=== PATIENT | male | born 1940 | race Caucasian/White ===

== ENCOUNTER 2017-01-08 12:54 | Emergency (ER) | payer OTHER ==
[~2017-01-08] VITALS: Ht 172.7 cm; Wt 90.0 kg
[2017-01-08 12:56] VITALS: BP 184/74; PULSE 101; RESP 20; TEMP 99.2; O2SAT 96
--- NOTE | 2017-01-08 13:10 | PD ---
Physical Exam Time Seen by Provider: 13:05 Narrative 76[facility] to left lower back x 2days despite antibiotics, I&D, and has Low grade fever. Patient also has confusion and the [facility] nurse was unable to verify if this was normal. Patient denies dementia. Patient denies vomiting. Patient seen in triage. VS reviewed. Awaiting bed placement. Data Data Last Documented VS Vital Signs Date Time Temp Pulse Resp B/P Pulse Ox O2 Delivery O2 Flow Rate FiO2 01/08/17 12:56 99.2 101 20 184/74 96 Room Air MDM Supervised Visit with ARMEN: Eula Richter Jan 08, 2017 13:10
--- NOTE | 2017-01-08 15:15 | PD ---
HPI Chief Complaint: Altered Mental Status Time Seen by Provider: 15:14 Travel History International Travel<30 days: No Contact w/Intl Traveler<30days: No Traveled to known affect area: No Allergies-Medications (Allergen,Severity, Reaction): Coded Allergies: No Known Allergies (Unverified , 01/08/17) Data Data Last Documented VS Vital Signs Date Time Temp Pulse Resp B/P Pulse Ox O2 Delivery O2 Flow Rate FiO2 01/08/17 15:24 84 14 92 Room Air 01/08/17 12:56 99.2 184/74 Orders Blood Glucose (01/08/17 14:46) Oximetry (01/08/17 14:46) Iv Access Insert/Monitor (01/08/17 14:46) Ecg Monitoring (01/08/17 14:46) Basic Metabolic Panel (Bmp) (01/08/17 15:25) Complete Blood Count With Diff (01/08/17 15:25) Blood Culture (01/08/17 15:25) Clindamycin Inj (Cleocin Inj) (01/08/17 15:30) Urinalysis - C+S If Indicated (01/08/17 15:25) Alcohol (Ethanol) (01/08/17 15:25) Acetaminophen (Tylenol) (01/08/17 15:30) Shireen Car Jan 08, 2017 15:15
[2017-01-08 15:24] VITALS: BP 131/89; PULSE 82; RESP 15; O2SAT 93
--- NOTE | 2017-01-08 15:27 | PD ---
HPI Chief Complaint: Altered Mental Status Time Seen by Provider: 15:27 Travel History International Travel<30 days: No Contact w/Intl Traveler<30days: No Traveled to known affect area: No History of Present Illness HPI 76 YO male presents to the ED by private car after being sent by the [place] for evaluation of possible altered mental status. On presentation the patient complains abscess on his back, present "for about a week." He denies fevers, chills, chest pain, palpitations, shortness of breath, abdominal pain, changes in bowel habits, nausea, vomiting, dysuria, weakness of the extremities. He states that he had the area treated last week but is unsure if it was at the [place] or [facility]. Patient endorses chronic ETOH, denies drinking today. He has not been taking antibiotics at home. [facility] Past Medical History Medical History: Denies Significant Hx Social History Alcohol Use: Yes ("not every day") Tobacco Use: No Substance Use: No Allergies-Medications (Allergen,Severity, Reaction): Coded Allergies: No Known Allergies (Unverified , 01/08/17) Reported Meds & Prescriptions Reported Meds & Active Scripts Active Clindamycin (Clindamycin HCl) 300 Mg Cap 300 Mg PO TID Review of Systems Except as stated in HPI: all other systems reviewed are Neg Physical Exam Narrative GENERAL: Well-nourished, well-developed pleasantly eccentric white male in no acute distress. Smells of alcohol. SKIN: Focused skin assessment warm/dry.SKIN: There is an indurated area in the mid back which measures about 3 cm in diameter. It is fluctuant, actively draining. There is a zone of inflammation around it but no lymphangitis. HEAD: Normocephalic. EYES: No scleral icterus. No injection or drainage. PERRLA. EOMI. NECK: Supple, trachea midline. No JVD or lymphadenopathy. CARDIOVASCULAR: Regular rate and rhythm without murmurs, gallops, or rubs. Equal pulses in the bilateral extremities. RESPIRATORY: Breath sounds clear and equal bilaterally. No accessory muscle use. GASTROINTESTINAL: Abdomen soft, non-tender, nondistended. Active bowel sounds. MUSCULOSKELETAL: No cyanosis, or edema. Ambulatory, walks with a steady gait. NEUROLOGICAL: Awake and alert. Cranial nerves II through XII intact. Motor and sensory grossly within normal limits. 5/5 muscle strength in all muscle groups. Normal speech. No pronator drift. BACK: Nontender without obvious deformity. No CVA tenderness. Data Data Last Documented VS Vital Signs Date Time Temp Pulse Resp B/P Pulse Ox O2 Delivery O2 Flow Rate FiO2 01/08/17 16:49 77 16 131/89 97 Room Air 01/08/17 12:56 99.2 Orders Blood Glucose (01/08/17 14:46) Oximetry (01/08/17 14:46) Iv Access Insert/Monitor (01/08/17 14:46) Ecg Monitoring (01/08/17 14:46) Basic Metabolic Panel (Bmp) (01/08/17 15:25) Complete Blood Count With Diff (01/08/17:) Blood Culture (01/08/17:) Clindamycin Inj (Cleocin Inj) (01/08/17 15:30) Urinalysis - C+S If Indicated (01/08/17 15:) Alcohol (Ethanol) (01/08/17 15:25) Acetaminophen (Tylenol) (01/08/17 15:30) Labs Laboratory Tests Test 01/08/17 01/08/17 15:30 16:00 White Blood Count 9.2 TH/MM3 Red Blood Count 4.75 MIL/MM3 Hemoglobin 14.6 GM/DL Hematocrit 43.8 % Mean Corpuscular Volume 92.1 FL Mean Corpuscular Hemoglobin 30.6 PG Mean Corpuscular Hemoglobin 33.3 % Concent Red Cell Distribution Width 14.6 % Platelet Count 184 TH/MM3 Mean Platelet Volume 7.8 FL Neutrophils (%) (Auto) 76.2 % Lymphocytes (%) (Auto) 9.8 % Monocytes (%) (Auto) 12.6 % Eosinophils (%) (Auto) 1.0 % Basophils (%) (Auto) 0.4 % Neutrophils # (Auto) 7.0 TH/MM3 Lymphocytes # (Auto) 0.9 TH/MM3 Monocytes # (Auto) 1.2 TH/MM3 Eosinophils # (Auto) 0.1 TH/MM3 Basophils # (Auto) 0.0 TH/MM3 CBC Comment DIFF FINAL Differential Comment Sodium Level 140 MEQ/L Potassium Level 3.9 MEQ/L Chloride Level 106 MEQ/L Carbon Dioxide Level 27.7 MEQ/L Anion Gap 6 MEQ/L Blood Urea Nitrogen 17 MG/DL Creatinine 0.91 MG/DL Estimat Glomerular Filtration 81 ML/MIN Rate Random Glucose 108 MG/DL Calcium Level 9.0 MG/DL Ethyl Alcohol Level LESS THAN 3 MG/DL Urine Color YELLOW Urine Turbidity CLEAR Urine pH 5.5 Urine Specific Max 1.026 Urine Protein 30 mg/dL Urine Glucose (UA) NEG mg/dL Urine Ketones NEG mg/dL Urine Occult Blood NEG Urine Nitrite NEG Urine Bilirubin NEG Urine Urobilinogen LESS THAN 2.0 MG/DL Urine Leukocyte Esterase TRACE Urine RBC 1 /hpf Urine WBC 3 /hpf Urine Squamous Epithelial <1 /hpf Cells Urine Hyaline Casts 1 /lpf Urine Mucus FEW /lpf Microscopic Urinalysis Comment CULT NOT INDICATED MDM Medical Decision Making Medical Screen Exam Complete: Yes Emergency Medical Condition: Yes Differential Diagnosis abscess versus cellulitis versus sepsis versus chronic alcoholism versus alcohol intoxication versus other Narrative Course 76 YO male presents to the ED by private car after being sent by the [place] for evaluation of possible altered mental status. On presentation the patient complains abscess on his back, present "for about a week." He denies fevers, chills, chest pain, palpitations, shortness of breath, abdominal pain, changes in bowel habits, nausea, vomiting, dysuria, weakness of the extremities. He states that he had the area treated last week but is unsure if it was at the [place] or [facility]. Patient endorses chronic ETOH, denies drinking today. Temp 99.2, pulse 101 in triage. Tachycardia resolved in the exam room. Physical exam reveals a pleasant, eccentric white male in no acute distress. He is alert and oriented 4. No focal neural deficits. There is an abscess in the mid back but it is open and draining well. Patient was administered 650 mg Tylenol by mouth, 900 mg clindamycin IV. No concerning abnormalities of the CBC, CMP or UA. He smells of ETOH, but blood alcohol less than 3. Discussed the results of the workup with the patient. I believe he is reliable to take antibiotics at home and [facility]. Patient's instructed to take all medication as prescribed, [facility]. He indicated understanding of instructions and is agreeable to the care plan. He is stable and discharged home. Diagnosis Primary Impression: Abscess Referrals: Primary Care Physician Patient Instructions: Abscess (ED), General Instructions Additional Instructions: Rest, hydrate. Change the dressing daily. You may shower normally. Do not submerge the wound. After bathing pat of wound dry. Allow the wound to air dry for 10-15 minutes. Apply a clean, dry dressing. Take the antibiotics as they are prescribed, even if your symptoms resolve. Utilize [id number] pain medications, as described on the label, as needed. Follow-up with your primary care provider this week. Return to the ED for any urgent or emergent medical condition. Med/Other Pt SpecificInfo: Prescription(s) given Scripts Clindamycin 300 Mg [id number] Mg PO TID #21 CAP Ref 0 Prov:Jaime Lira MD 01/08/17 Disposition: 01 DISCHARGE HOME Condition: Stable Shireen Car Jan 08, 2017 15:27
[2017-01-08] MEDS ORDERED: CLINDAMYCIN INJ 900 MG in SODIUM CHLORIDE 0.9% INJ 100 ML IV ONE (15:30)
[2017-01-08] MEDS ORDERED: ACETAMINOPHEN 325 MG TAB PO ONE (15:30)
[2017-01-08 16:12] LABS: BASOPHIL % 0.4 % (0.0-2.0); EOSINOPHIL # 0.1 TH/MM3 (0-0.4); HEMATOCRIT 43.8 % (39.0-51.0); HEMO FLAGS DIFF FINAL; LYMPH % 9.8 % (9.0-44.0); LYMPHOCYTE # 0.9 TH/MM3 (1.0-4.8); MEAN CELL VOLUME 92.1 FL (80.0-100.0); MEAN CORPUSCULAR HEMOGLOBIN 30.6 PG (27.0-34.0); MEAN CORPUSCULAR HGB CONC 33.3 % (32.0-36.0); MONO % 12.6 % (0.0-8.0); NEUT % 76.2 % (16.0-70.0); PLATELET COUNT 184 TH/MM3 (150-450); RED BLOOD COUNT 4.75 MIL/MM3 (4.50-5.90); RED CELL DISTRIBUTION WIDTH 14.6 % (11.6-17.2); WHITE BLOOD COUNT 9.2 TH/MM3 (4.0-11.0)
[2017-01-08 16:16] VITALS: BP 131/89; PULSE 75; RESP 15; O2SAT 94
[2017-01-08 16:26] LABS: BLOOD, URINE NEG (NEG); COMMENT (UR) CULT NOT INDICATED; CULTURE IF INDICATED CULT NOT INDICATED; GLUCOSE,URINE NEG (NEG); HYALINE CAST, URINE 1 /lpf (RARE); KETONE, URINE NEG (NEG); MUCUS URINE FEW /lpf (OCC); NITRITE,URINE NEG (NEG); PH, URINE 5.5 (5.0-8.5); SQUAMOUS EPITHELIAL CELL URINE <1 /hpf (0-5); URINE COLOR YELLOW (YELLW/STRAW)
[2017-01-08 16:37] LABS: ANION GAP 6 MEQ/L (5-15); BICARBONATE 27.7 MEQ/L (21.0-32.0); BLOOD UREA NITROGEN 17 MG/DL (7-18); CHLORIDE 106 MEQ/L (98-107); GLOMERULAR FILTRATION RATE 81 ML/MIN (>89); POTASSIUM 3.9 MEQ/L (3.5-5.1); SODIUM (NA) 140 MEQ/L (136-145)
[2017-01-08] MEDS ORDERED: CLIN1CAP6 PO (16:43)
[2017-01-08 16:49] VITALS: BP 131/89; PULSE 77; RESP 16; O2SAT 97
== END 2017-01-08 18:06 | disposition home or self-care (01) ==
LOC: NEPC 12:54
DX: L02.212 Cutaneous abscess of back [any part, except buttock and flank] (principal)
CPT/HCPCS: 80048; 80307; 81001; 85025; 87040; 96374